=== PATIENT | female | born 1990 ===

== ENCOUNTER 2017-02-24 10:02 | Emergency (ER) | payer MEDICAID, SELFPAY ==
[2017-02-24 10:43] VITALS: BMI 29.9
--- NOTE | 2017-02-24 11:19 | OBHP ---
Datetime: 02/24/2017 11:13 IP Adm Impression: Term, intrauterine IP Admit Plan: Observation/Evaluation Admit Comment, IP Provider: 26 yo g1 LMP 06/08 EDC by 10wk us in pr[facility]ents to [facility] with c/o no FM si nce 14:00 yesterday. She denies srom, vag bleeding, abd trauma or fall, ctxs. OB hx sign for transfer of pnc, late care. Pt states she received her initial care in where sh e was also given her edc. 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 allerg: pcn rash pmhx: denies medic: pnv shx: denies etoh, drugs or tobacco i: decreased fm p: fms bpp Pelvic Type - PN: Adequate Extremities - PN: Normal Abdomen - PN: Normal Back - PN: Normal Lungs - PN: Normal Heart - PN: Normal Thyroid - PN: Normal Neurologic - PN: Normal HEENT - PN: Normal General - PN: Normal FHR - Baseline A Provider: 130 Membranes, Provider: Intact Contraction Comments Provider: no Comments, ACOG Physical Exam: SSE: no ff in vag with and w/out valsalva EGA AdmitDate IP: 38.3 Vital Signs Provider: Reviewed; Within Normal Limits IP Chief Complaint: Decreased movement NICHD Accel Fetus A IP Provider: [id number] NICHD Decel Fetus A IP Provider: None Dilatation, Provider: 0 Effacement, Provider: 0 Station, Provider: -4 DTRs - PN: Normal
--- NOTE | 2017-02-24 12:50 | US ---
PROCEDURE: biophysical profile examination HISTORY: decreased movement COMPARISON: Not available TECHNIQUE: Limited obstetrical ultrasound examination was performed specifically for evaluation of biophysical profile. FINDINGS: The examination demonstrates a single live intrauterine gestation in cephalic presentation. heart rate is 144 beats per minute. Normal anterior placenta is identified. A normal quantity of amniotic fluid is appreciated. The LUECRO is 14.8 cm. Biophysical profile score is 8 out of 8. IMPRESSION: Biophysical profile score 8 out of 8.
== END 2017-02-24 15:00 | disposition home or self-care (01) ==
LOC: H.EROB2 10:02
DX: O47.1 False labor at or after 37 completed weeks of gestation (principal); Z3A.38 38 weeks gestation of pregnancy